=== PATIENT | male | born 1975 | race Two or more races ===

== ENCOUNTER 2020-07-21 08:42 | Emergency (ER) | payer OTHER ==
[~2020-07-21] VITALS: Ht 180.3 cm; Wt 104.3 kg
[2020-07-21] MEDS ORDERED: CLONAZEPAM1 M1 PO (09:04)
[2020-07-21] MEDS ORDERED: ZOLOFT50 MG PO (09:04)
== END 2020-07-21 10:28 | disposition home or self-care (01) ==
LOC: ER 08:42
DX: S63.592A Other specified sprain of left wrist, initial encounter (principal); W01.198A Fall on same level from slipping, tripping and stumbling with subsequent striking against other object, initial encounter; Y93.89 Activity, other specified; Y92.89 Other specified places as the place of occurrence of the external cause; Y99.8 Other external cause status